=== PATIENT | female | born 1940 | race Caucasian/White ===

== ENCOUNTER → 2022-05-13 | Outpatient (REF) | payer MEDICARE, OTHER, SELFPAY ==
[2022-05-13 10:06] LABS: Anion Gap 14 (5-15); BUN 175 mg/dL (7-18); BUN/Creat Ratio 31.7 RATIO (10-20); Calcium,Total 9.7 mg/dL (8.5-10.1); Chloride 122 mmol/L (98-107); Creatinine, Serum 5.52 mg/dL (0.55-1.02); EST Glomerular Filtration Rate 8 mL/min (>60); Est Glom Filt Rate - Afr Amer 10 mL/min (>60); Glucose 100 mg/dL (74-106); Potassium 5.2 mmol/L (3.5-5.1); Sodium Level 155 mmol/L (136-145)
== END ==
LOC: OLS.ACH 05:00
PROVIDERS: Visit Provider Family Medicine
DX: I50.9 Heart failure, unspecified (principal)
CPT/HCPCS: 36415; 80048